=== PATIENT | male | born 1965 | race Caucasian/White ===

== ENCOUNTER 2021-12-30 10:22 | Emergency (ER) | payer OTHER ==
[~2021-12-30] VITALS: Ht 165.1 cm; Wt 100.0 kg
[2021-12-30 10:43] VITALS: BP 145/84
[2021-12-30] MEDS ORDERED: ACETAMINOPHEN 325MG TABLET PO STA (10:54)
[2021-12-30] MEDS ORDERED: NAPR-681 PO (13:06)
== END 2021-12-30 13:17 | disposition home or self-care (01) ==
LOC: ER 10:22
DX: M25.511 Pain in right shoulder (principal); M25.561 Pain in right knee; Z93.3 Colostomy status; Z98.890 Other specified postprocedural states; Z88.0 Allergy status to penicillin; W17.89XA Other fall from one level to another, initial encounter; Y93.89 Activity, other specified; Y92.89 Other specified places as the place of occurrence of the external cause; Y99.8 Other external cause status
CPT/HCPCS: 73030; 99283